=== PATIENT | male | born 1960 | race Caucasian/White ===

== ENCOUNTER 2025-10-05 05:24 | Day surgery (SDC) | payer MEDICARE ==
[2025-09-29 12:39] LABS: MEAN PLATELET VOLUME 8.4 FL (7.4-10.4); PRE OP HEMATOCRIT 43.0 % (42.0-52.0); PRE OP HEMOGLOBIN 13.9 g/dL (14.0-17.9); PRE OP PLATELET COUNT 327 X10'3 (140-440); PRE OP WHITE BLOOD COUNT 7.1 10'3 (4.8-10.8); RED CELL DISTRIBUTION WIDTH 18.5 % (11.5-14.5)
[2025-09-29 13:00] LABS: CREATININE 1.22 MG/DL (0.60-1.10); PRE OP ALT 26 U/L (30-65); PRE OP ANION GAP 6 (8-16); PRE OP AST 19 U/L (10-37); PRE OP BILIRUB, TOTAL 0.6 MG/DL (0.0-1.0); PRE OP GLUCOSE 88 MG/DL (70-104); PRE OP POTASSIUM 3.8 MMOL/L (3.4-5.1); PRE OP SODIUM 138 MMOL/L (135-145); TOTAL CARBON DIOXIDE 27.2 MMOL/L (24-32); eGFR 60 ML/MIN
[~2025-10-05] VITALS: Ht 177.8 cm; Wt 91.2 kg
[~2025-10-05 05:24] MED LIST: AMLO5TAB16 PO; FEXO-219 PO; GABA300C PO; HYDR12.55 PO; IBUP-1986 PO; MULT-1074 PO
[2025-10-05 05:45] VITALS: BP 140/98; PULSE 90; RESP 16; TEMP 97.6; O2SAT 99
[2025-10-05] MEDS: ceFAZolin 2gm/dext,iso 50mL 50 ML IV ONE (06:02)
[2025-10-05] MEDS: ringers solution, lacted 1,000 ML IV SCH (06:02)
[2025-10-05] MEDS ORDERED: BUPIVAcaine/PF 2.5mg/ml (0.25%) 10ml vial ONE (06:41)
[2025-10-05] MEDS ORDERED: LIDOcaine 2% (20mg/ml) 5ml vial ONE (06:41)
[2025-10-05] MEDS ORDERED: triamcinolone acetonide 40mg/ml inj ONE (06:41)
[2025-10-05] MEDS ORDERED: propofol inj 20 ML IV ONE (07:20)
[2025-10-05] MEDS: BUPIVAcaine/PF 2.5mg/ml (0.25%) 10ml vial IJ ONE (07:30)
[2025-10-05 07:40] VITALS: BP 106/82; PULSE 102; RESP 15; O2SAT 97
[2025-10-05 07:50] VITALS: BP 124/96; PULSE 89; RESP 18; O2SAT 98
[2025-10-05 08:00] VITALS: BP 129/98; PULSE 83; RESP 12; O2SAT 97
[2025-10-05 08:10] VITALS: BP 123/93; PULSE 92; RESP 14; O2SAT 96
--- NOTE | 2025-10-05 10:06 | OPERATIVE REPORT ---
Operative Report Providers to ~ Date of Procedure: Oct 05, 2025 Pre-Operative Diagnosis: Carpal tunnel syndrome right wrist Post-Operative Diagnosis SAME as PRE-Op Procedure Performed Right wrist endoscopic carpal tunnel release Surgeon: Arturo Yeboah MD Preparing Box Tender None Anesthesiologist: Kuldeep Banegas Type of Anesthesia: Other Findings: Local anesthetic Estimated Blood Loss: None Specimen Removed: None Description of Procedure: The patient is a 65-year-old man with right carpal tunnel syndrome refractory to nonsurgical treatment. Surgery is indicated to relieve symptoms. Risks and benefits were discussed with the patient and consent was obtained. In the operating room time-out procedure was identified and the arm was prepped and draped in usual manner. Local anesthetic was infiltrated proximal to the volar wrist crease. The tourniquet was elevated on the forearm. A transverse incision was made at the wrist crease ulnar to palmaris longus. A distally based U shaped flap was raised in the forearm fascia and the scope was placed in the carpal canal in line with the ring finger. The distal end of the ligament was identified and the blade was deployed up against it. The scope was then drawn proximally dividing the ligament from distal to proximal. The scope was removed the flap was transected and the fascia proximal to the incision was divided using the blunt scissor tips was thereby decompressing the nerve. The incision was irrigated and closed with Prolene suture. A sterile dressing was then applied and the tourniquet was released. The hand perfused well and the patient was taken to the recovery room in stable condition. The patient tolerated the procedure well ARTURO YEBOAH Jr., MD Oct 05, 2025 10:06
== END 2025-10-05 08:15 | disposition home or self-care (01) ==
LOC: PAS 05:24
PROVIDERS: ATTEND Orthopaedic Surgery Hand Surgery
DX: G56.03 Carpal tunnel syndrome, bilateral upper limbs (principal); E78.5 Hyperlipidemia, unspecified; I48.91 Unspecified atrial fibrillation; I10 Essential (primary) hypertension; Z98.890 Other specified postprocedural states; Z80.3 Family history of malignant neoplasm of breast; Z82.49 Family history of ischemic heart disease and other diseases of the circulatory system
CPT/HCPCS: 29848; 36415; 80053; 82948; 85025; A4215; A6449; A7000; J2704; J3490; J7030; J7120; Z7506; Z7512; Z7610; J2003; J3301